=== PATIENT | female | born 1975 | race Caucasian/White ===

== ENCOUNTER → 2021-11-25 08:30 | Outpatient (CLI) | payer OTHER, SELFPAY ==
--- NOTE | 2021-11-25 08:41 | DI.RAD.S_ITS ---
PROCEDURE: XR HAND LT MIN 3V INDICATIONS: LEFT THUMB PAIN TECHNIQUE: 3 views of the hand(s) acquired. COMPARISON: [facility], CR, XR WRIST LT MIN 3V, 11/25/2021, 8:36. FINDINGS: Bones: No fractures or dislocations. Carpal bones are normally aligned. No suspicious bony lesions. Soft tissues: No suspicious soft tissue calcifications. IMPRESSION: No visualized acute fracture or dislocation. However, if clinical concern and/or pain persist, short interval imaging followup in 7-10 days is recommended, as occult injury cannot be definitively excluded. Dictated by: Maria Antonia Mcclellan M.D. on 11/25/2021 at 14:01 Approved by: Maria Antonia Mcclellan M.D. on 11/25/2021 at 14:03
--- NOTE | 2021-11-25 08:41 | DI.RAD.S_ITS ---
PROCEDURE: XR WRIST LT MIN 3V INDICATIONS: LEFT WRIST PAIN TECHNIQUE: 4 views of the wrist were acquired. COMPARISON: [facility], , XR HAND LT MIN 3V, 11/25/2021, 8:36. FINDINGS: Bones: No fractures or dislocations. No suspicious bony lesions. Scaphoid view: No visualized fracture. Soft tissues: No suspicious soft tissue calcifications. IMPRESSION: No visualized acute fracture or dislocation. However, if clinical concern and/or pain persist, short interval imaging followup in 7-10 days is recommended, as occult injury cannot be definitively excluded. Dictated by: Maria Antonia Mcclellan M.D. on 11/25/2021 at 14:00 Approved by: Maria Antonia Mcclellan M.D. on 11/25/2021 at 14:01
== END ==
PROVIDERS: Referring Provider Physical Medicine & Rehabilitation; Visit Provider Physical Medicine & Rehabilitation
DX: M24.242 Disorder of ligament, left hand (principal); M25.532 Pain in left wrist; M79.645 Pain in left finger(s); G89.29 Other chronic pain
CPT/HCPCS: 73110; 73130; 99215